=== PATIENT | female | born 1960 | race Caucasian/White ===

== ENCOUNTER → 2021-05-08 | Outpatient (CLI) | payer OTHER ==
--- NOTE | 2021-05-08 16:25 | RAD ---
XR CHEST 2V 05/08/2021 4:06 PM Indication: Reason: COPD, PNEUMONIA Comparison: None Technique: PA and lateral views of the chest Findings: The lungs are hyperexpanded and the diaphragms are flattened. There is a large area of acute airspace disease. There is a 1.3 cm nodular density overlying the right lower lobe. No pleural effusion. The cardiomediastinal silhouette is within normal limits. No pneumothorax. There is diffuse demineralizat ion of the visualized spine. There is compression abnormality of a lower thoracic spine vertebral bod y. Impression: 1. 1.3 cm nodular density overlying the right lower lobe. While this may represent overlapping struct ures, if patient is at high risk, a chest CT is recommended. 2. Changes of COPD. 3. Age-indeterminate compression abnormality of a lower thoracic spine vertebral body. Electronically signed by: Myron Rodriguez (05/08/2021 4:22 PM) [id number]
== END ==
LOC: PF 09:39
PROVIDERS: ATTEND Family Medicine
DX: Z02.71 Encounter for disability determination (principal); J44.9 Chronic obstructive pulmonary disease, unspecified; R91.1 Solitary pulmonary nodule
CPT/HCPCS: 71046; 94060; 94640; 94664